=== PATIENT | female | born 1995 | race Caucasian/White ===

== ENCOUNTER 2016-12-25 23:16 | Emergency (ER) | payer OTHER ==
[2016-12-26 00:05] VITALS: BP 108/73; PULSE 96; TEMP 99; BMI 30.1
--- NOTE | 2016-12-26 00:08 | PDOC ---
History of Present Illness - History of Present Illness Initial Comments: 12/26/16 00:12 The patient is a 21 year old female, with no significant past medical history, taking control pills, who presents to the emergency department for c/o dry cough with occasional clear sputum production with progression to shortness of breath at noon today. The patient denies recent travel or sick contacts. She denies chest pain, shortness of breath, headache and dizziness. She denies fever, chills, nausea, vomit, diarrhea and constipation. She denies dysuria, frequency, urgency and hematuria. Allergies: NKDA Past surgical history: none reported Social history: nonsmoker PCP - Dr. Arturo Skelton <Caro Miller - Last Filed: 12/26/16 00:29> - General History Source: Patient <Jerome Jeffery - Last Filed: 12/26/16 01:04> - General Chief Complaint: Respiratory Stated Complaint: CHEST PAIN Time Seen by Provider: 12/26/16 00:05 Past History <Caro Miller - Last Filed: 12/26/16 00:29> - Past Medical History Thyroid Disease: Yes (hypothyroid) - Suicide/Smoking/Psychosocial Hx Smoking History: Never smoked Have you smoked in the past 12 months: No Information on smoking cessation initiated: No Hx Alcohol Use: No Drug/Substance Use Hx: No <Jerome Jeffery - Last Filed: 12/26/16 01:04> - Past Medical History Allergies/Adverse Reactions: Allergies Allergy/AdvReac Type Severity Reaction Status Date / Time No Known Allergies Allergy Verified 12/26/16 00:05 Home Medications: Ambulatory Orders Albuterol Sulfate Inhaler - [Ventolin HFA Inhaler -] 2 inh IH Q6H #1 inh Levothyroxine [Synthroid -] 112 mcg PO DAILY 12/26/16 Prednisone [Deltasone -] 40 mg PO DAILY #14 tablet 12/26/16 Review of Systems - Review of Systems Able to Perform ROS?: Yes Comments:: 12/26/16 00:12 CONSTITUTIONAL: Absent: fever, chills, diaphoresis, generalized weakness, malaise, loss of appetite HEENT: Absent: rhinorrhea, nasal congestion, throat pain, throat swelling, difficulty swallowing, mouth swelling, ear pain, eye pain, visual Changes CARDIOVASCULAR: Absent: chest pain, syncope, palpitations, irregular heart rate, lightheadedness , peripheral edema RESPIRATORY: +cough, shortness of breath, Absent: dyspnea with exertion, orthopnea, wheezing , stridor, hemoptysis GASTROINTESTINAL: Absent: abdominal pain, abdominal distension, nausea, vomiting, diarrhea, constipation, melena, hematochezia GENITOURINARY: Absent: dysuria, frequency, urgency, hesitancy, hematuria, flank pain, genital pain MUSCULOSKELETAL: Absent: myalgia, arthralgia, joint swelling SKIN: Absent: rash, itching, pallor HEMATOLOGIC/IMMUNOLOGIC: Absent: easy bleeding, easy bruising, lymphadenopathy, frequent infections ENDOCRINE: Absent: unexplained weight gain, unexplained weight loss, heat intolerance, cold intolerance NEUROLOGIC: Absent: headache, focal weakness or paresthesias, dizziness, unsteady gait, seizure, mental status changes, bladder or bowel incontinence PSYCHIATRIC: Absent: anxiety, depression, suicidal or homicidal ideation, hallucinations. <Caro Miller - Last Filed: 12/26/16 00:29> *Physical Exam - Vital Signs Last Vital Signs Temp Pulse Resp BP Pulse Ox 99.0 F 96 H 20 108/73 96 12/26/16 00:03 12/26/16 00:03 12/26/16 00:03 12/26/16 00:03 12/26/16 00:03 - Physical Exam Comments: 12/26/16 00:13 GENERAL: Well developed, well nourished. Awake and alert. No acute distress. HEENT: Normocephalic, atraumatic. PERRLA, EOMI. No conjunctival pallor. Sclera are non- icteric. Moist mucous membranes. Oropharynx is clear. NECK: Supple. Full ROM. No JVD. Carotid pulses 2+ and symmetric, without bruits. No thyromegaly. No lymphadenopathy. CARDIOVASCULAR: Regular rate and rhythm. No murmurs, rubs, or gallops. Distal pulses are 2+ and symmetric. PULMONARY: +Decreased breath sounds bilaterally. Lungs clear to auscultation bilaterally. No wheezing, rales or rhonchi. ABDOMINAL: Soft. Non-tender. Non-distended. No rebound or guarding. No organomegaly. Normoactive bowel sounds. MUSCULOSKELETAL Normal range of motion at all joints. No bony deformities or tenderness. No CVA tenderness. EXTREMITIES: No cyanosis. No clubbing. No edema. No calf tenderness. SKIN: Warm and dry. Normal capillary refill. No rashes. No jaundice. NEUROLOGICAL: Alert, awake, appropriate. Cranial nerves 2-12 intact. Normoreflexic in the upper and lower extremities. Normal speech. Toes are down-going bilaterally. Gait is normal without ataxia. PSYCHIATRIC: Cooperative. Good eye contact. Appropriate mood and affect. <Caro Miller - Last Filed: 12/26/16 00:29> - Vital Signs Last Vital Signs Temp Pulse Resp BP Pulse Ox 99.0 F 96 H 20 108/73 96 12/26/16 00:03 12/26/16 00:03 12/26/16 00:03 12/26/16 00:03 12/26/16 00:03 <Jerome Jeffery - Last Filed: 12/26/16 01:04> Heart Score/ECG Review - ECG Intrepretation Comment:: 12/26/16 00:29 EKG was read by Dr. Jeffery at 23:56 Impression: Normal sinus rhythm with sinus arrhythmia Vent rate: 82bpm CA Interval: 148 ms QTc: 448ms <Caro Miller - Last Filed: 12/26/16 00:29> Medical Decision Making - Medical Decision Making 12/26/16 01:04 Dr. Jeffery: The scribe's documentation has been prepared under my direction and personally reviewed by me in its entirery. I confirm that the note above accurately reflects all work, treatment, procedures, and medical decision making performed by me. <Jerome Jeffery - Last Filed: 12/26/16 01:04> *DC/Admit/Observation/Transfer - Attestations Scribe Attestion: 12/26/16 00:13 Documentation prepared by Caro Miller, acting as medical collections specialist for Jerome Jeffery DO <Caro Miller - Last Filed: 12/26/16 00:29> - Discharge Dispostion Admit: No <Jerome Jeffery - Last Filed: 12/26/16 01:04> Diagnosis at time of Disposition: Bronchospasm, Shortness of breath - Discharge Dispostion Disposition: HOME Condition at time of disposition: Stable - Prescriptions Prescriptions: Prednisone [Deltasone -] 40 mg PO DAILY #14 tablet Albuterol Sulfate Inhaler - [Ventolin HFA Inhaler -] 2 inh IH Q6H #1 inh - Referrals Referrals: Arturo Skelton MD [Primary Care Provider] - - Patient Instructions Printed Discharge Instructions: DI for Shortness of Breath
[2016-12-26] MEDS ORDERED: predniSONE 20 MG TABLET (UD) ONE (00:09)
[2016-12-26] MEDS ORDERED: ALBUTEROL SO4 2.5/IPRATROPIUM 0.5 INH SOL 3 ML VIAL.NEB. NEB STA ×3 (00:09→01:01)
[2016-12-26] MEDS ORDERED: predniSONE 20 MG TABLET (UD) PO ONE (00:09)
--- NOTE | 2016-12-26 14:12 | EKG ---
Test Reason : Blood Pressure : / mmHG Vent. Rate : 082 BPM Atrial Rate : 082 BPM P-R Int : 148 ms QRS Dur : 084 ms QT Int : 384 ms P-R-T Axes : 067 022 042 degrees QTc Int : 448 ms NORMAL SINUS RHYTHM WITH SINUS ARRHYTHMIA POSSIBLE LEFT ATRIAL ENLARGEMENT BORDERLINE ECG NO PREVIOUS ECGS AVAILABLE Confirmed by WATSON HERNANDEZ MD ([id number]) on 12/26/2016 2:11:39 PM Referred By: Confirmed By:WATSON HERNANDEZ MD
== END 2016-12-26 01:21 | disposition home or self-care (01) ==
LOC: JER 23:16
PROC: 3E0F7GC Introduction of Other Therapeutic Substance into Respiratory Tract, Via Natural or Artificial Opening (ICD-10-PCS; principal; 2016-12-25)
PROC: 3E0F7GC Introduction of Other Therapeutic Substance into Respiratory Tract, Via Natural or Artificial Opening (ICD-10-PCS; 2016-12-25)
DX: J98.01 Acute bronchospasm (principal)
CPT/HCPCS: 93005; 93010; 94640; 99282-25

== ENCOUNTER 2017-05-24 08:49 | Emergency (ER) | payer OTHER ==
[2017-05-24 08:53] VITALS: BP 132/72; PULSE 108; TEMP 97.9; BMI 28.8
--- NOTE | 2017-05-24 09:41 | PDOC ---
History of Present Illness - General Chief Complaint: Respiratory Stated Complaint: COUGH Time Seen by Provider: 05/24/17 09:07 - History of Present Illness Initial Comments: 05/24/17 10:36 cough x 2 weeks, saw urgent care and given nebs and tessalon perles but no abx. no fever, only posttussive vomiting, no diarrhea. lungs clear. Past History - Past Medical History Allergies/Adverse Reactions: Allergies Allergy/AdvReac Type Severity Reaction Status Date / Time No Known Allergies Allergy Verified 05/24/17 08:53 Home Medications: Ambulatory Orders Albuterol Sulfate Inhaler - [Ventolin HFA Inhaler -] 2 inh IH Q6H #1 inh Levothyroxine [Synthroid -] 112 mcg PO DAILY 12/26/16 Azithromycin [Zithromax 250mg Tablets -] 250 mg PO UTDICT #6 tab 05/24/17 Guaifenesin 200 mg PO Q6H PRN #28 tablet 05/24/17 COPD: No Thyroid Disease: Yes (hypothyroid) - Suicide/Smoking/Psychosocial Hx Smoking History: Never smoked Have you smoked in the past 12 months: No Hx Alcohol Use: No Drug/Substance Use Hx: No *Physical Exam - Vital Signs Last Vital Signs Temp Pulse Resp BP Pulse Ox 97.9 F 108 H 16 132/72 97 05/24/17 08:50 05/24/17 08:50 05/24/17 08:50 05/24/17 08:50 05/24/17 08:50 *DC/Admit/Observation/Transfer Diagnosis at time of Disposition: Bronchitis - Discharge Dispostion Disposition: HOME - Prescriptions Prescriptions: Azithromycin [Zithromax 250mg Tablets -] 250 mg PO UTDICT #6 tab Guaifenesin 200 mg PO Q6H PRN #28 tablet PRN Reason: Cough - Referrals Referrals: Arturo Skelton MD [Primary Care Provider] - - Patient Instructions Printed Discharge Instructions: DI for Acute Bronchitis Additional Instructions: Please take medications as prescribed. Follow up with your primary care doctor next week. If you develop fever, chills, persistent vomiting, diarrhea, or any new or worsening symptoms, please return to the ER. - Post Discharge Activity
== END 2017-05-24 10:27 | disposition home or self-care (01) ==
LOC: JERFT 08:49
DX: J40 Bronchitis, not specified as acute or chronic (principal); E03.9 Hypothyroidism, unspecified
CPT/HCPCS: 99281-25

== ENCOUNTER 2017-05-26 18:58 | Emergency (ER) | payer OTHER ==
[2017-05-26 19:14] VITALS: BP 134/95; PULSE 95; TEMP 98.1; BMI 28.8
--- NOTE | 2017-05-26 19:15 | PDOC ---
Rapid Medical Evaluation Time Seen by Provider: 05/26/17 19:06 Medical Evaluation: Allergies Allergy/AdvReac Type Severity Reaction Status Date / Time No Known Allergies Allergy Verified 05/24/17 08:53 05/26/17 19:07 I have performed a brief in-person person evaluation of the patient. The patient presents with a chief complaint of non productive coughing since 2 weeks, with no fever or chills. Seen at Urgent Care treated with nebs and cough suppressant, states seen at this ed for the same, given z-pack, she took as directed except for today she took 3 tablets because she thought it would help the cough. States vomited after taking the 3 tablets Pertinent physical exam findings: NAD lungs clear bilaterally heart s1s2 abdomen soft non tender I have ordered the following: will defer orders, patient afebrile, taking z-pack, cough suppressant. The patient will proceed to the ED for further evaluation.
--- NOTE | 2017-05-26 19:55 | PDOC ---
History of Present Illness - General Chief Complaint: Cold Symptoms Stated Complaint: FATIGUE Time Seen by Provider: 05/26/17 19:06 History Source: Patient - History of Present Illness Initial Comments: 05/26/17 19:52 Best Contact: Pmhx: Hypothyroid Pshx:N/A Allergies: NKDA 22-year-old female presents to the emergency department complaining of a nonproductive cough 2 weeks. Patient states she was seen last Friday on and was given Tessalon Perles and albuterol inhaler for her symptom of coughing. Patient states she took the albuterol inhaler 2 puffs every 15 minutes around the clock for 2 weeks. Patient went through 2 inhalers in 2 weeks. Patient states she felt better with inhaler but within the hour, she was started coughing again. Patient was then seen here in the emergency department 2 days ago, 05/24/2017. She was given Zithromax and Tessalon Perles 100 mg 3 times a day when necessary cough. Patient states on her first day she took 2 tablets of her Zithromax then on her second day she took 1 tablet Zithromax. Today's dose should be 1 tablet Zithromax 250 mg again and she should have 2 more tablets left. Instead, patient states she took 3 Zithromax 250 mg tablets this evening thinking that that will suppress her cough. Patient denies any fever, chills, nausea/vomiting, headache, dizziness, lightheadedness, facial pains, nasal congestion, rhinorrhea, earaches, sore throat, neck stiffness/pain, back pains, chest pain, shortness of breath, abdominal pains, flank pains, urinary symptoms. Patient denies any other symptoms. Timing/Duration: reports: other (x2 weeks) Past History - Past Medical History Allergies/Adverse Reactions: Allergies Allergy/AdvReac Type Severity Reaction Status Date / Time No Known Allergies Allergy Verified 05/26/17 19:10 Home Medications: Ambulatory Orders Albuterol Sulfate Inhaler - [Ventolin HFA Inhaler -] 2 inh IH Q6H #1 inh Levothyroxine [Synthroid -] 112 mcg PO DAILY 12/26/16 Azithromycin [Zithromax 250mg Tablets -] 250 mg PO UTDICT #6 tab 05/24/17 Guaifenesin 200 mg PO Q6H PRN #28 tablet 05/24/17 COPD: No Thyroid Disease: Yes (hypothyroid) - Suicide/Smoking/Psychosocial Hx Smoking History: Never smoked Have you smoked in the past 12 months: No Information on smoking cessation initiated: No Hx Alcohol Use: No Drug/Substance Use Hx: No Substance Use Type: None Review of Systems - Review of Systems Able to Perform ROS?: Yes Comments:: 05/26/17 19:49 CONSTITUTIONAL: Absent: fever, chills, diaphoresis, generalized weakness, malaise, loss of appetite HEENT: Absent: rhinorrhea, nasal congestion, throat pain, throat swelling, difficulty swallowing, mouth swelling, ear pain, eye pain, visual Changes CARDIOVASCULAR: Absent: chest pain, loss of consciousness, palpitations, irregular heart rate, peripheral edema RESPIRATORY: +cough Absent: shortness of breath, dyspnea with exertion, orthopnea, wheezing, stridor , hemoptysis GASTROINTESTINAL: Absent: abdominal pain, abdominal distension, nausea, vomiting, diarrhea, constipation, melena, hematochezia GENITOURINARY: Absent: dysuria, frequency, urgency, hesitancy, hematuria MUSCULOSKELETAL: Absent: myalgia, arthralgia, joint swelling SKIN: Absent: rash, itching, pallor HEMATOLOGIC/IMMUNOLOGIC: Absent: easy bleeding, easy bruising, lymphadenopathy, frequent infections ENDOCRINE: Absent: unexplained weight gain, unexplained weight loss, heat intolerance, cold intolerance NEUROLOGIC: Absent: headache, focal weakness or paresthesias, dizziness, unsteady gait, seizure, mental status changes, bladder or bowel incontinence PSYCHIATRIC: Absent: anxiety, depression, suicidal or homicidal ideation, hallucinations. Is the patient limited O[place]i proficient: No *Physical Exam - Vital Signs Last Vital Signs Temp Pulse Resp BP Pulse Ox 98.1 F 95 H 20 134/95 97 05/26/17 19:11 05/26/17 19:11 05/26/17 19:11 05/26/17 19:11 05/26/17 19:11 - Physical Exam Comments: 05/26/17 19:50 GENERAL: Well developed, well nourished. Awake and alert. No acute distress. HEENT: Normocephalic, atraumatic. PERRLA, EOMI. No conjunctival pallor. Sclera are non- icteric. Moist mucous membranes. Oropharynx is clear. NECK: Supple. Full ROM. No JVD. Carotid pulses 2+ and symmetric, without bruits. No thyromegaly. No lymphadenopathy. CARDIOVASCULAR: Regular rate and rhythm. No murmurs, rubs, or gallops. Distal pulses are 2+ and symmetric. PULMONARY: No evidence of respiratory distress. Lungs clear to auscultation bilaterally. No wheezing, rales or rhonchi. ABDOMINAL: Soft. Non-tender. Non-distended. No rebound or guarding. No organomegaly. Normoactive bowel sounds. MUSCULOSKELETAL Normal range of motion at all joints. No bony deformities or tenderness. No CVA tenderness. EXTREMITIES: No cyanosis. No clubbing. No edema. No calf tenderness. SKIN: Warm and dry. Normal capillary refill. No rashes. No jaundice. NEUROLOGICAL: Alert, awake, appropriate. Cranial nerves 2-12 intact. No deficits to light touch and temperature in face, upper extremities and lower extremities. No motor deficits in the in face, upper extremities and lower extremities. Normoreflexic in the upper and lower extremities. Normal speech. Toes are down- going bilaterally. Gait is normal without ataxia. PSYCHIATRIC: Cooperative. Good eye contact. Appropriate mood and affect. *DC/Admit/Observation/Transfer Diagnosis at time of Disposition: Chronic cough - Discharge Dispostion Disposition: HOME Condition at time of disposition: Stable Admit: No - Referrals Referrals: Arturo Skelton MD [Primary Care Provider] - - Patient Instructions Printed Discharge Instructions: DI for Cough -- Adult Additional Instructions: [id number] supportive care Medrol Dosepak as prescribed As per our in depth conversation in the emergency department, it is very important that you take the Medrol Dosepak as direct. The sure cushions will be on the pack as we've discussed. It is important that you do not go off track and take the medication as per your own directions. Increase fluids Follow up with your physician within the next 48 hours Return to the emergency department for severe/persistent or worsening symptoms - Post Discharge Activity
== END 2017-05-26 19:56 | disposition home or self-care (01) ==
LOC: JERFT 18:58
DX: R05 Cough (principal); E03.9 Hypothyroidism, unspecified
CPT/HCPCS: 99281-25